=== PATIENT | male | born 1980 | race Caucasian/White ===

== ENCOUNTER 2021-10-17 13:44 | Emergency (ER) | payer OTHER ==
[2021-10-17 14:17] LABS: BASO # 0.04 K/mm3 (0.02-0.10); EOS # 0.19 K/mm3 (0.04-0.40); EOS % 3.6 % (0.0-4.0); HEMATOCRIT 41.7 % (42.0-52.0); HEMOGLOBIN 14.5 g/dL (13.5-18.0); LYMPH# 1.73 K/mm3 (1.50-4.00); MEAN CELL VOLUME 86 fl (78-100); MEAN CORPUSCULAR HEMOGLOBIN 30 pg (27-31); MEAN CORPUSCULAR HGB CONC 35 g/dL (33-37); MEAN PLATELET VOLUME 9.1 fl (7.4-10.4); MONO # 0.43 K/mm3 (0.20-0.80); NEU # 2.82 K/mm3 (1.40-6.50); PLATELET COUNT 259 K/mm3 (130-400); RED BLOOD COUNT 4.86 M/mm3 (4.20-5.60); WHITE BLOOD COUNT 5.2 K/mm3 (4.8-10.8)
[2021-10-17 14:27] LABS: ALBUMIN 4.4 g/dL (3.5-5.0); POTASSIUM 3.9 mmol/L (3.5-5.1); SODIUM 142 mmol/L (136-145)
[2021-10-17 14:30] LABS: GLUCOSE 88 mg/dL (75-110)
[2021-10-17 14:31] LABS: CARBON DIOXIDE 22 mmol/L (22-29)
[2021-10-17 14:32] LABS: TOTAL BILIRUBIN 0.4 mg/dL (0.2-1.2)
[2021-10-17 14:35] LABS: AST-SGOT 22 U/L (5-34)
[2021-10-17 14:36] LABS: ALT/SGPT 49 U/L (0-55)
[2021-10-17 15:01] LABS: TROPONIN-I < 0.030 ng/mL (<0.030)
[2021-10-17 15:27] VITALS: BP 111/81
== END 2021-10-17 15:25 | disposition home or self-care (01) ==
LOC: ED 13:44
PROVIDERS: Physician Assistant
DX: R07.89 Other chest pain (principal); Z28.310 Unvaccinated for COVID-19

== ENCOUNTER → 2021-11-15 | Outpatient (CLI) | payer OTHER | LOC: RAD 16:43 | DX: M51.35 Other intervertebral disc degeneration, thoracolumbar region (principal) ==

== ENCOUNTER → 2022-02-09 | Outpatient (CLI) | payer OTHER | LOC: RAD 17:09 | DX: M51.34 Other intervertebral disc degeneration, thoracic region (principal); M51.36 Other intervertebral disc degeneration, lumbar region ==

== ENCOUNTER → 2022-02-28 | Outpatient (CLI) | payer OTHER | LOC: RAD 07:00 | DX: R16.0 Hepatomegaly, not elsewhere classified (principal) | CPT/HCPCS: A9575 ==

== ENCOUNTER → 2024-05-12 | Outpatient (CLI) | payer OTHER ==
[2024-05-12 12:39] LABS: BASO # 0.01 K/mm3 (0.02-0.10); EOS # 0.06 K/mm3 (0.04-0.40); EOS % 1.8 % (0.0-4.0); HEMATOCRIT 45.2 % (42.0-52.0); HEMOGLOBIN 15.5 g/dL (13.5-18.0); LYMPH# 1.11 K/mm3 (1.50-4.00); MEAN CELL VOLUME 87 fl (78-100); MEAN CORPUSCULAR HEMOGLOBIN 30 pg (27-31); MEAN CORPUSCULAR HGB CONC 34 g/dL (33-37); MEAN PLATELET VOLUME 8.9 fl (7.4-10.4); MONO # 0.32 K/mm3 (0.20-0.80); NEU # 1.83 K/mm3 (1.40-6.50); PLATELET COUNT 224 K/mm3 (130-400); RED BLOOD COUNT 5.17 M/mm3 (4.20-5.60); RED CELL DISTRIBUTION WIDTH 12.2 % (11.5-14.5); WHITE BLOOD COUNT 3.3 K/mm3 (4.8-10.8)
[2024-05-12 12:47] LABS: ALBUMIN 4.4 g/dL (3.5-5.0)
[2024-05-12 12:48] LABS: CALCIUM 9.1 mg/dL (8.3-10.5)
[2024-05-12 12:49] LABS: TOTAL PROTEIN 7.7 g/dL (6.4-8.3)
[2024-05-12 12:51] LABS: TOTAL BILIRUBIN 0.4 mg/dL (0.2-1.2)
[2024-05-13 07:38] LABS: FACTOR V LEIDEN MUTATION B Negative (Negative)
== END ==
LOC: RAD 12:26 → LAB 12:26
PROVIDERS: Physician Assistant
DX: R05.9 Cough, unspecified (principal); E78.5 Hyperlipidemia, unspecified; K90.9 Intestinal malabsorption, unspecified; Z83.2 Family history of diseases of the blood and blood-forming organs and certain disorders involving the immune mechanism